=== PATIENT | female | born 1950 | race Caucasian/White ===

== ENCOUNTER 2021-10-01 13:10 | Emergency (ER) | payer SELFPAY ==
[2021-10-01 13:55] LABS: BASOPHIL 0.5 % (0-2); EOSINOPHIL 0.8 % (0-7); HCT 44.9 % (37.0-47.0); HGB 14.9 g/dl (12.5-16.0); LYMPHOCYTE 19.7 % (15-48); MCH 30.5 pg (25.0-31.0); MCHC 33.2 g/dL (32.0-36.0); MONOCYTE 9.9 % (0-12); MPV 9.5 fL (6.0-9.5); NEUTROPHIL 68.8 % (41-80); NRBC 0; PLT 304 K/uL (150-400); RBC 4.88 M/uL (4.20-5.40); RDW 12.8 % (11.5-14.0); WBC 11.8 K/uL (4.0-10.5)
[2021-10-01 13:59] LABS: INR 1.08 (0.9-1.2); PROTHROMBIN TIME 13.4 SECONDS (11.8-13.4); PTT 26.4 SECONDS (24.4-34.7)
[2021-10-01 14:10] LABS: LACTIC ACID 1.3 mmol/L (0.4-1.9)
[2021-10-01 14:17] LABS: BILIRUBIN NEGATIVE (NEGATIVE); BLOOD 1+ Ery/uL (NEGATIVE); CLARITY CLEAR (CLEAR); COLOR YELLOW (YELLOW); GLUCOSE (U) NORMAL (NORMAL); LEUKOCYTES 1+ Leu/uL (NEGATIVE); NITRITE POSITIVE (NEGATIVE); PROTEIN NEGATIVE (NEGATIVE); UROBILINOGEN 0.2 mg/dL (0.2-1.0)
[2021-10-01 14:17] LABS: ALBUMIN 3.7 g/dL (3.4-5.0); ALKALINE PHOSHATASE 113 U/L (46-116); ALT 20 U/L (14-59); AST 21 U/L (15-37); BILIRUBIN - TOTAL 0.5 mg/dL (0.2-1.0); BUN 12 mg/dL (7-18); BUN/CREAT RATIO (CALC) 19.7 RATIO; CHLORIDE 103 mmol/L (98-107); CO2 (BICARBONATE) 27 mmol/L (21-32); CREATININE 0.61 mg/dL (0.51-0.95); GLOBULIN (CALCULATION) 3.9 g/dL; GLUCOSE 103 mg/dL (74-106); MAGNESIUM 2.2 mg/dL (1.8-2.4); POTASSIUM 3.6 mmol/L (3.5-5.1); TOTAL PROTEIN 7.6 g/dL (6.4-8.2)
[2021-10-01 14:46] LABS: BACTERIA 4+
== END 2021-10-01 16:00 | disposition other institution (70) ==
LOC: FER 13:10
PROVIDERS: Emergency Medicine
DX: I63.412 Cerebral infarction due to embolism of left middle cerebral artery (principal); N39.0 Urinary tract infection, site not specified; Z88.1 Allergy status to other antibiotic agents; Z88.5 Allergy status to narcotic agent; Z20.822 Contact with and (suspected) exposure to COVID-19; Z28.310 Unvaccinated for COVID-19
CPT/HCPCS: 36415; 70450; 71250; 80053; 81001; 82140; 83605; 83735; 84145; 84439; 84443; 84484; 85025; 85610; 85730; 86140; 87076; 87088; 87186; 93005; G0480; J0696; U0002